=== PATIENT | female | born 1955 | race Asian ===

== ENCOUNTER 2024-07-07 22:22 | Inpatient (IN) | payer OTHER, SELFPAY ==
[2024-07-07 15:45] VITALS: BP 171/107
[2024-07-07 16:43] LABS: % Eosinophils 1.3 % (0-6); % Immature Granulocytes 0.3 % (0-0.5); % Lymphocytes 14.3 % (20.5-51.1); % Monocytes 7.8 % (1.7-9.3); % Neutrophils 75.3 % (42.2-75.2); Absolute Eosinophils 0.1 10^3/uL (0-0.7); Absolute Lymphocytes 0.6 10^3/uL (1.2-3.4); Absolute Monocytes 0.3 10^3/uL (0.1-0.6); Absolute Neutrophils 2.9 10^3/uL (1.4-6.5); Hematocrit 33.4 % (37.0-47.0); Hemoglobin 11.6 g/dL (12.0-16.0); Mean Corp Hgb Conc. 34.7 g/dL (33.0-37.0); Mean Corpuscular Hgb 29.1 pg (27.0-31.0); Mean Corpuscular Volume 83.9 fL (81.0-99.0); Nucleated Red Blood Cells % 0 %; Platelet Count 6 10^3/uL (130-400); Red Blood Cell Count 3.98 10^6/uL (4.20-5.40); Red Cell Dist. Width 12.2 % (11.5-14.5); White Blood Cell Count 3.8 10^3/uL (4.8-10.8)
[2024-07-07 16:47] LABS: INR 1.07; PT 13.7 Sec (11.4-14.6)
[2024-07-07 16:48] LABS: APTT 33.6 Sec (23.4-35.0)
[2024-07-07 16:49] LABS: ALT (SGPT) 21 U/L (0-35); AST (SGOT) 35 U/L (14-36); Albumin 4.9 g/dl (3.5-5.0); Alkaline Phosphatase 59 U/L (38-126); Blood Urea Nitrogen 13 mg/dl (7-17); Calcium 9.8 mg/dl (8.4-10.2); Carbon Dioxide 28 mmol/L (22-30); Chloride 106 mmol/L (98-107); Glucose 111 mg/dl (70-99); Potassium 4.6 mmol/L (3.5-5.1); Sodium 144 mmol/L (135-145); Total Bilirubin 0.2 mg/dl (0.2-1.3); Total Protein 7.8 g/dl (6.3-8.2); eGFR > 60.00
[2024-07-07 16:59] VITALS: BMI 24.2
--- NOTE | 2024-07-07 18:36 | ED.GENMED ---
Addendum entered and electronically signed by Jason Ballard DO 07/07/24 21:46:
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 Not an acute finding.
Original Note:
History of Present Illness
General
Chief Complaint: Abnormal Lab Value
Source: patient
Time Seen by Provider: 07/07/24 17:33
History of Present Illness
History of Present Illness:
68-year-old female presents to the emergency room complaining of having an abnormal blood test performed by her primary care doctor. Patient states she has been having easy bruising prompting her to go to her primary care doctor. Primary care
doctor performed some labs and called her telling her her blood count was low and she needed to go to the emergency room. She does not the exact number. Patient denies headache. She denies any bleeding from her gums, nosebleed or rectal bleeding.
Patient has not had any recent illnesses. She has not started any new medications. She does not drink alcohol.
Phy Exam
Physical Exam
Physical Exam:
General: Awake, Alert, Oriented X3. No acute distress.
Vitals: unremarkable
Head: Atraumatic
Eyes: Pupils equal, EOMI
Throat: Airway intact, no exudates
Neck: Trachea midline
Lungs: Clear and equal b/l
Heart: Regular rate, no murmurs
Abd: Soft, Nontender, No pulsatile mass, I do not appreciate any splenomegaly
Neuro: Nonfocal
Skin: Warm, dry, no rash
Extremities: pulses equal b/l, no edema
Course
Orders/Labs/Results
Orders:
Orders
07/07/24 15:54
EKG [Electrocardiogram (*1)] Urgent
Reason for Study: Fatigue / Weakness
07/07/24 15:55
EKG- Treatment ONCE
07/07/24 16:25
Type+Screen Urgent
Complete Blood Count/With Diff Urgent
Comprehensive Metabolic Panel Urgent
PTT Urgent
Prothrombin Time Urgent
07/07/24 19:18
Blood Bank Products [* Blood Bank Products] Urgent
Blood Bank Products: *Plt Single Donor Leuko
Quantity: 1
Transfuse Today: Yes
Reason: Thrombocytopenia
07/07/24 19:50
ABO2 Urgent
BBK Wristband Number:
Associate notified that ABO2 has been ordered: [id number]
Date: 07/07/24
Time: 16:40
Environmental Studies Department Chair ID: [id number]
07/07/24 21:00
Dexamethasone Sod Phosphate [Decadron] 40 mg 0.9% Sodium Chloride 50 ml [Nss] 50 ml IV ONCE
07/07/24 21:07
Admit/Transfer Patient As Directed
Co-Sign Provider:
Level of Care: Inpatient admission
Assign to:: Medical/Surgical
Physician / Group: Hospitalist
Diagnosis: Low platelets
Reason for Hospitalization: Low platelets
Expected length of stay greater than two midnights?: Yes
ELOS- Estimated Length of Stay in days: 2
I certify the patient meets the requirements for IP care: Yes
07/07/24 21:08
PRN Pain Medication Management As Directed
May give lesser potent ordered pain med per pt: Yes
preference::
Protocol:: Medication orders for pain may be administered in a
manner that supports deferring to patient preference
when the pt is:
- Requesting an ordered lesser potent pain medication.
Least to most potent pain medications are defined
as: acetaminophen < NSAID < tramadol < opioids
(morphine, oxycodone, hydromorphone).
- Requesting a lesser dose of the same medication IF
ORDERED.
- Requesting a less intrusive route of administration
if both routes are prescribed by the provider (PO <
IV).
07/07/24 21:09
Code Status As Directed
Resuscitation Status: Full Code
Abnormal Lab Results
07/07/24
16:25
WBC 3.8 L 10^3/uL
(4.8-10.8)
RBC 3.98 L 10^6/uL
(4.20-5.40)
Hgb 11.6 L g/dL
(12.0-16.0)
Hct 33.4 L %
(37.0-47.0)
Plt Count 6 L* 10^3/uL
(130-400)
Absolute Lymphs (auto) 0.6 L 10^3/uL
(1.2-3.4)
Neutrophils % 75.3 H %
(42.2-75.2)
Lymphocytes % 14.3 L %
(20.5-51.1)
Glucose 111 H mg/dl
(70-99)
07/07/24 16:25
07/07/24 16:25
Vital Signs
Initial and Last Documented VS:
Initial Vital Signs
Temp Pulse Resp BP Pulse Ox
98 F 93 16 171/107 99
07/07/24 15:45 07/07/24 15:45 07/07/24 15:45 07/07/24 15:45 07/07/24 15:45
Last Documented Vital Signs
Temp Pulse Resp BP Pulse Ox
98.4 F 70 18 163/82 100
07/07/24 21:30 07/07/24 21:30 07/07/24 21:30 07/07/24 21:30 07/07/24 21:30
MDM/Problems Addressed
Differential Diagnosis Includes:
Myelodysplastic disease, ITP, TTP
MDM/Problems Addressed:
Patient presents with very low platelet count of 5000. She does have some easy bruising. No signs of more significant bleeding. Discussed patient's presentation with Dr. Marroquin who is on-call for hematology. Patient was actually seen in their
office couple days ago. Notes from the office suggest the patient has some history of low platelet count and she may have been treated with steroids in the past. He recommends we transfuse platelets and treat the patient with 40 mg of Decadron. I
did clarify the dose. Patient require hospitalization for close monitoring of bleeding, response to treatment.
*Pulse Oximetry
Patient hypoxic: no
*Critical Care Note
Total Time (30-74mins, 75-104mins- exclusive of procedures): Not Applicable
Data Reviewed
Review of Other/Old Records Reveals: Labs
Patient Management
Social determinants of health affecting care: Strong social support
Discussion with other providers: Hospitalist
ED Attending Note
-
Portions of this chart may have been created with voice recognition software.� Occasional wrong word or��sound alike� substitutions may have occurred due to the inherent limitations of voice recognition software.
Discharge Plan
Departure
Patient Disposition: Admit
Date of Disposition: 07/07/24
Time of Disposition: 19:48
Admit to: Med/Surg
Presentation/result/management discussed w/ accepting MD/DO: Hospitalist
Patient with high blood pressure during this ER visit?: No
Condition: Fair
Discharge Problem:
Thrombocytopenia
Prescriptions:
No Action
Vitamin C 2,000 mg Tablet Extended Release
2,000 mg PO DAILY
zinc 10 mg Tablet
10 mg PO DAILY
cholecalciferol (vitamin D3) [Vitamin D3] 25 mcg (1,000 unit) Tablet
25 mcg PO DAILY
Referrals:
Aram Razo MD [Family Provider] -
Interventions
Interventions:
*Risk Screen - Suicide Last Done: 07/07/24 15:45
*General Assessment Last Done: 07/07/24 16:59
*Neglect/Abuse Screening Last Done: 07/07/24 15:45
ED- Fall Risk Assessment Last Done: 07/07/24 20:01
*ED COVID-19 Vaccine History Last Done: 07/07/24 16:59
Discharge Date and Time
Print Language: THAI
[2024-07-07 20:00] VITALS: BP 176/87
[2024-07-07] MEDS: DECADRON 60 MG IV (20:41)
--- NOTE | 2024-07-07 20:51 | HPS.HSE ---
Family Physician
-
Family Physician: Aram Razo
Chief Complaint
-
low platelets
History of Present Illness
68-year-old woman comes in because of an abnormal blood test performed by her primary care doctor. She had been having easy bruising, prompting her to go to her primary care doctor. The primary care doctor performed some labs and called her
telling her her blood count was low and she needed to go to the emergency room. She does not which exact number was low. Patient denies headache. She denies any bleeding from her gums, nosebleed or rectal bleeding. Patient has not had any recent
illnesses. She has not started any new medications. She does not drink alcohol. In ED she was found to have a platelet count of 6. At the time of my interview, she said she felt well and had no complaints.
Medical History
Past Medical History
Past Medical History: Reports Other
Additional Past Medical History:
Possible ITP
Low vitamin D
Past Surgical History: Reports None
Social History
Tobacco: Non-smoker
Alcohol: None
Drug: None
Family History
Family History: Not pertinent
Allergies / Home Medications
Allergies reflects when Allergies were last updated in [facility].
Home Medications with original date entered in [facility]
Allergy/Medication List:
Allergies
Allergy/AdvReac Type Severity Reaction Status Date / Time
shellfish derived Allergy Rash Verified 07/07/24 15:53
Home Medications
ascorbic acid (vitamin C) 2,000 mg tablet,extended release 2,000 mg PO DAILY 07/07/24
cholecalciferol (vitamin D3) 25 mcg (1,000 unit) tablet (Vitamin D3) 25 mcg PO DAILY 07/07/24
zinc 10 mg tablet 10 mg PO DAILY 07/07/24
Review of Systems
-
History Source: Patient
A 12 point ROS was completed and negative except as noted: Yes
Physical Exam
Vital Signs
Vital Signs
Temp Pulse Resp BP Pulse Ox
98 F 80 16 176/87 99
07/07/24 15:45 07/07/24 20:00 07/07/24 20:00 07/07/24 20:00 07/07/24 20:00
Physical Exam
General: Well Developed, Well Nourished, No Apparent Distress and Comfortable
HEENT: NormoCephalic, Moist mucous membranes, Atraumatic, No Ptosis, Nose Appears Normal and Ears Appear Normal
Respiratory: Clear
Cardiac: S1/S2 and Regular Rhythm
GI: Soft, Non Tender and Non Distended
Musculoskeletal: No Clubbing, No Cyanosis and No Edema
Skin: Warm and Dry
Neuro: Awake, Alert and Oriented
Psych: Calm
Laboratory Results
-
07/07/24 16:25
07/07/24 16:25
Laboratory Results
PT 13.7 Sec (11.4-14.6) 07/07/24 16:25
INR 1.07 07/07/24 16:25
APTT 33.6 Sec (23.4-35.0) 07/07/24 16:25
Total Bilirubin 0.2 mg/dl (0.2-1.3) 07/07/24 16:25
AST 35 U/L (14-36) 07/07/24 16:25
ALT 21 U/L (0-35) 07/07/24 16:25
Alkaline Phosphatase 59 U/L (38-126) 07/07/24 16:25
Data Reviewed
-
Lab Data: Labs Reviewed by me
Impression/Plan
-
IMPRESSION:
68 woman with low platelets. Significant findings:
WBC 3.8
H/H 11.6/33.4
PLT 6
PLAN:
1. Low platelets, possible h/o ITP
IV decadron
Platelet transfusion in am
Recheck labs in am
If in good range, may consider transition to outpt followup
Full code
VCD for DVTP (avoid reparin products)
[2024-07-07 21:30] VITALS: BP 163/82
[2024-07-07 21:55] VITALS: BP 124/78
--- NOTE | 2024-07-07 22:00 | EDRN ---
patient resting comfortably, waiting on a bed at this time, call denton in reach
--- NOTE | 2024-07-08 01:35 | EDRN ---
Patient sleeping at this time, call denton in reach, will continue to monitor
[2024-07-08 02:18] VITALS: BP 178/107; BMI 23.3
[2024-07-08 02:40] VITALS: BP 170/88
[2024-07-08] MEDS: FLUSH (NSS) 2 FLUSH IV (02:41)
[2024-07-08] MEDS: DECADRON 4 MG IV ×2 (02:41→07:44)
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
[2024-07-08 04:50] VITALS: BP 158/86
[2024-07-08 07:01] LABS: Blood Urea Nitrogen 13 mg/dl (7-17); Calcium 9.4 mg/dl (8.4-10.2); Carbon Dioxide 24 mmol/L (22-30); Chloride 107 mmol/L (98-107); Estimated Creatinine Clearance 90 ml/min; Glucose 139 mg/dl (70-99); Potassium 3.6 mmol/L (3.5-5.1); Sodium 144 mmol/L (135-145); eGFR > 60.00
[2024-07-08 07:16] LABS: Hematocrit 35.2 % (37.0-47.0); Hemoglobin 12.4 g/dL (12.0-16.0); Mean Corp Hgb Conc. 35.2 g/dL (33.0-37.0); Mean Corpuscular Volume 82.4 fL (81.0-99.0); Platelet Count 8 10^3/uL (130-400); Red Blood Cell Count 4.27 10^6/uL (4.20-5.40); Red Cell Dist. Width 12.3 % (11.5-14.5)
[2024-07-08 08:22] VITALS: BP 156/56
--- NOTE | 2024-07-08 09:00 | W.PN.HOSP.TC ---
Today's Communication/Plan
-
see note
Assessment / Plan
Assessment / Plan
1. Thrombocytopenia
- new finding, no previous h/o
- Denies recent infection, no rash/joint pain h/o
- Plt 6 k on admission, WNC 3k, neurophil dominant, Hbg 12.4
- PT/INR/PTT wnl
- Manual diff ordered to check for atypical cells
- Check HepB/C/HIV/KEMAR/B12/folate level. Further testing per hematology
- Low concern for ongoing hemolysis with normal wbc
- Got 1 u plt per hematology recommendation
- Got IV decadron 40mg x1 in ER, ordering Prednisone 1mg/kg dose for now
2. Elevated BP
- no formal dx of HTN
- start norvasc 5mg/d
- PRN hydralazine for SBP > 160
DVT PPX - scd
Full code
Totat time spent : 52 mins
Anticipated Discharge: 24 - 48 hours
Subjective/Interval History
-
Date of Service: July 08, 2024
patient has diffuse ecchymosis of both upper and lower ext
no major bleeding diathesis
Objective Data
-
Labs:
Laboratory Results
07/08/24 07/08/24
06:20 08:47
WBC 3.0 L
Hgb 12.4
Hct 35.2 L
Plt Count 8 L* D
PT Cancelled
INR Cancelled
APTT Cancelled
Sodium 144
Potassium 3.6
Chloride 107
Carbon Dioxide 24
BUN 13
Creatinine 0.5 L
Glucose 139 H
Calcium 9.4
Vital Signs:
Vital Signs
Temp Pulse Resp BP Pulse Ox
97.8 F 69 16 156/56 96
07/08/24 08:22 07/08/24 08:22 07/08/24 08:22 07/08/24 08:22 07/08/24 08:22
I&O
07/07/24 07/08/24 07/09/24
06:59 06:59 06:59
Intake Total 360 / 360
Balance 360 / 360
Review of Systems
-
Respiratory: Reports No Symptoms
Cardiac: Reports No Symptoms
Abdomen/GI: Reports No Symptoms
Physical Exam
-
General: No Apparent Distress and Comfortable
HEENT: Negative Oxygen
Respiratory: Clear to Auscultation
Cardiac: Regular Rhythm and S1/S2; Negative Murmur or Rub
GI: Soft, Nontender, Nondistended and Normal Bowel Sounds
Musculoskeletal: No Edema
Skin: Other (Diffuse echymosis)
Neuro: Awake, Alert, Oriented, No Motor Deficits and Nonfocal/Grossly Intact
Psych: Calm
[2024-07-08] MEDS: DELTASONE 70 MG PO (10:01)
[2024-07-08] MEDS: PROTONIX 40 MG PO (10:02)
[2024-07-08] MEDS: NORVASC 5 MG PO (10:02)
[2024-07-08 10:06] LABS: Absolute Neutrophils -Man Diff 2.4 10^3/uL (1.4-6.5); Band Neutrophils 8 % (0-3); Segmented Neutrophils 75 % (42-75)
[2024-07-08 10:07] LABS: Lymphocytes 17 % (20-51)
[2024-07-08 10:08] LABS: Platelets Checked YES
[2024-07-08 10:11] LABS: Normal RBC Morphology No; Ovalocytes FEW
[2024-07-08 10:12] LABS: Total Cells Counted 100
[2024-07-08 11:04] LABS: HIV Combo Negative (Negative)
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
[2024-07-08 12:40] LABS: Folate > 20.0 ng/ml (2.76-20); Vitamin B12 922 pg/ml (239-931)
[2024-07-08 15:56] VITALS: BP 142/83
[2024-07-08 23:00] VITALS: BP 128/78
[2024-07-09 07:13] VITALS: BP 141/83
[2024-07-09 07:30] LABS: Blood Urea Nitrogen 21 mg/dl (7-17); Calcium 9.2 mg/dl (8.4-10.2); Carbon Dioxide 26 mmol/L (22-30); Chloride 107 mmol/L (98-107); Estimated Creatinine Clearance 90 ml/min; Glucose 111 mg/dl (70-99); Potassium 3.7 mmol/L (3.5-5.1); Sodium 143 mmol/L (135-145); eGFR > 60.00
--- NOTE | 2024-07-09 07:33 | W.PN.HOSP.TC ---
Addendum entered and electronically signed by Ham Lael MD 07/09/24 14:43:
thrombocytopenia, unclear etiology, lkely/suspected ITP though/ unlikely hus as no renal dysfunciton, maha, high ldh/bili/low hapto. unlikely ttp as no confusion, maha, high ldh/bili/low hapto.
-continue steroids for now
-s/p 1u plts
-plt 47 now, not sure if this steroids or transfusion
-therefore will repeat in the AM, if continues to rise then related to steroids and can dc home on po steroids
-if going down tghen related to transfusion and will need to discuss with hem.
Original Note:
Today's Communication/Plan
-
Patient's platelets have increased up to 47,000 following steroids and platelet transfusion. Oncology recommends that we monitor the patient overnight to ensure that they maintain a reasonable level of platelets. Oncology recommends continuing
steroids and his changed steroids over from prednisone to a pulsed therapy with dexamethasone. Oncology states that if the patient is discharged tomorrow she will only need 1 more dose of dexamethasone 40 mg on Tuesday which could be administered
orally.
Assessment / Plan
Assessment / Plan
HPI: Patient is a 68-year-old woman who came into the emergency department due to an abnormal blood test performed by her primary care doctor. Unfortunately, she has been having easy bruising which prompted her to go to the primary care doctor.
Her primary care doctor performed some labs in the office and called her telling her that one of the values in her blood count was low and that she needed to go to the emergency room. She did not remember which exact number was low. The patient
denied any headache in the emergency department. She denied any bleeding from her gums, nose bleeding, or rectal bleeding. She has not had any recent illnesses. She has not started any new medications. She does not drink alcohol either. In the
emergency department she was found to have a platelet count of 6. During interview in the emergency department the patient felt well and had no complaints at that time. In the emergency department she was given 1 unit of platelets. She was
admitted to [facility] for thrombocytopenia.
Assessment/Plan:
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
Platelets were 6000 on admission, WBCs were low at 3.8, neurophil dominant, hemoglobin was 11.6 on 07/07/24 -platelets are 47 following platelet transfusion, white blood cells at 5.7, and hemoglobin at 11.4 on 07/09/2024
PT/INR/PTT wnl
Manual diff ordered to check for atypical cells -neutrophil predominant
Checked HepB/C/HIV/KEMAR/B12/folate level. Further testing per hematology
Low concern for ongoing hemolysis with normal wbc
Got 1 u plt per hematology recommendation
Patient currently on dexamethasone 40 mg IV every 24 hours
-Elevated BP:
No prior diagnosis of hypertension�possibly essential hypertension
Norvasc 5mg/d started
PRN hydralazine for SBP > 160
ulcer prophylaxis: Pantoprazole sodium 40 mg
DVT PPX -sequential compression devices
FULL CODE STATUS
Anticipated Discharge: 24 - 48 hours
Subjective/Interval History
-
Date of Service: July 09, 2024
Met with patient at the bedside. Overall, she is doing well and offers no complaints at the present time. She stated that she has no abnormal symptoms other than the abnormal bruising she was getting in the past that has not changed since her
arrival. She has no new bruises since she has come to the hospital. She has not had any bloody stools or vomiting. She has not noticed any abnormal bruising or bleeding anywhere.
Objective Data
-
Labs:
Laboratory Results
07/09/24
06:42
WBC Pending
Hgb Pending
Hct Pending
Plt Count Pending
Sodium 143
Potassium 3.7
Chloride 107
Carbon Dioxide 26
BUN 21 H
Creatinine 0.6
Glucose 111 H
Calcium 9.2
Vital Signs:
Vital Signs
Temp Pulse Resp BP Pulse Ox
98.1 F 77 14 128/78 94
07/08/24 23:00 07/08/24 23:00 07/08/24 23:00 07/08/24 23:00 07/08/24 23:00
I&O
07/08/24 07/09/24 07/10/24
06:59 06:59 06:59
Intake Total 360 / 360 780 / 780
Balance 360 / 360 780 / 780
[2024-07-09 07:47] LABS: Hematocrit 32.1 % (37.0-47.0); Hemoglobin 11.4 g/dL (12.0-16.0); Mean Corp Hgb Conc. 35.5 g/dL (33.0-37.0); Mean Corpuscular Hgb 29.5 pg (27.0-31.0); Mean Corpuscular Volume 83.2 fL (81.0-99.0); Red Blood Cell Count 3.86 10^6/uL (4.20-5.40); Red Cell Dist. Width 12.4 % (11.5-14.5); White Blood Cell Count 5.7 10^3/uL (4.8-10.8)
[2024-07-09 07:50] LABS: Mean Platelet Volume 14.3 fL (7.4-10.4)
[2024-07-09 07:52] LABS: Platelet Count 47 10^3/uL (130-400)
[2024-07-09] MEDS: DELTASONE 70 MG PO (08:30)
[2024-07-09] MEDS: PROTONIX 40 MG PO (08:30)
[2024-07-09] MEDS: NORVASC 5 MG PO (08:31)
--- NOTE | 2024-07-09 11:39 | W.PN.ONC ---
Today's Communication / Plan
-
Platelets are up to 47,000. Unclear if this is due to the steroids or the platelet transfusion. Would prefer to watch overnight to ensure that they will maintain a reasonable level, which I would anticipate they will. Continue steroids. I have
changed the prednisone to pulse therapy with dexamethasone. If discharged tomorrow, she would need only 1 more dose of 40 mg on Tuesday, which could be administered orally.
Impression
Impression
severe thrombocytopenia - possible ITP
Plan
Plan
1. Thrombocytopenia - severe- The patient's thrombocytopenia appears to be chronic in nature. Continue pulse dexamethasone 40mg daily and monitor CBC. Check anti-platelet antibody.
Will continue to follow with you.
Subjective/Objective
Subjective/Objective
She is feeling reasonably well. She reports no bleeding. Examination is unchanged.
Vital Signs:
Vital Signs
Temp Pulse Resp BP Pulse Ox
97.6 F 60 12 141/83 98
07/09/24 07:13 07/09/24 07:13 07/09/24 07:13 07/09/24 07:13 07/09/24 07:13
Lab Results:
Laboratory Data
WBC 5.7 10^3/uL (4.8-10.8) 07/09/24 06:42
Hgb 11.4 g/dL (12.0-16.0) L 07/09/24 06:42
Plt Count 47 10^3/uL (130-400) L D 07/09/24 06:42
PT Cancelled 07/08/24 08:47
INR Cancelled 07/08/24 08:47
APTT Cancelled 07/08/24 08:47
eGFR > 60.00 07/09/24 06:42
[2024-07-09] MEDS: DECADRON 60 MG IV (13:45)
[2024-07-09 15:36] VITALS: BP 124/69
--- NOTE | 2024-07-09 15:46 | CM ---
Addendum entered by PHOENIX Zamorano 07/09/24 16:14:
Patient's S.S # for UR [id number]
Original Note:
Reviewed chart, met with patient to obtain information for assessment. Patient stated that she lives in a single home with 7 steps to enter. She described herself as independent with her ADLs, personal care, dressing and bathing. She does not use a
cane, walker or w/c. She denied DME. She stated that family assists with quilt sewer, cooking, cleaning and laundry. Family transports patient to her appointments and helps with the shopping.
Patient has not had VN services.
She has not had to go to a SNF.
Patient has a prescription plan and uses, [facility] for all of her medications.
Patient's PCP is, Aram Razo MD.
Patient stated that she should be able to return home when medically cleared for discharge and does not plan and any needs.
Plan: Case management will continue to follow and assist with discharge planning. Home when stable.
[2024-07-09 19:04] LABS: Hepatitis B Surface Antigen Negative (Negative)
[2024-07-09 19:22] LABS: Hepatitis B Core Ab, Total Reactive (Negative); Hepatitis B Surface Antibody Negative; Hepatitis C Antibody Negative (Negative)
[2024-07-09 23:20] VITALS: BP 126/73
--- NOTE | 2024-07-10 07:26 | W.PN.HOSP.TC ---
Addendum entered and electronically signed by Ham Leal MD 07/11/24 11:46:
take 1 more day of po prednisone. outpatient heme follow up
dc ready to home
total time spent on DC 32mins
-included chart review
-medication review
-follow up
-ddx diagnosis
-post hospital care/needs
Original Note:
Today's Communication/Plan
-
Patient appears to be at her baseline and her platelets are stable and continue to trend upwards. Hematology has evaluated the patient and by their assessment believes the patient is appropriate for discharge with a completion of 40 mg of
dexamethasone.
Assessment / Plan
Assessment / Plan
HPI: Patient is a 68-year-old woman who came into the emergency department due to an abnormal blood test performed by her primary care doctor. Unfortunately, she has been having easy bruising which prompted her to go to the primary care doctor.
Her primary care doctor performed some labs in the office and called her telling her that one of the values in her blood count was low and that she needed to go to the emergency room. She did not remember which exact number was low. The patient
denied any headache in the emergency department. She denied any bleeding from her gums, nose bleeding, or rectal bleeding. She has not had any recent illnesses. She has not started any new medications. She does not drink alcohol either. In the
emergency department she was found to have a platelet count of 6. During interview in the emergency department the patient felt well and had no complaints at that time. In the emergency department she was given 1 unit of platelets. She was
admitted to [facility] for thrombocytopenia.
Assessment/Plan:
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
Platelets were 6000 on admission, WBCs were low at 3.8, neurophil dominant, hemoglobin was 11.6 on 07/07/24 -platelets are 47 following platelet transfusion, white blood cells at 5.7, and hemoglobin at 11.4 on 07/09/2024. Platelets are 77 on
07/10/2024.
PT/INR/PTT wnl
Manual diff ordered to check for atypical cells -neutrophil predominant
Checked HepB/C/HIV/KEMAR/B12/folate level. Further testing per hematology
Low concern for ongoing hemolysis with normal wbc
Got 1 unit of platelets per hematology recommendation
Patient will be discharged on 1 day dose of 40 mg dexamethasone
-Elevated BP:
No prior diagnosis of hypertension�possibly essential hypertension
Norvasc 5mg/d started
PRN hydralazine for SBP > 160
ulcer prophylaxis: Pantoprazole sodium 40 mg
DVT PPX -sequential compression devices
FULL CODE STATUS
Anticipated Discharge: Today
Subjective/Interval History
-
Date of Service: July 10, 2024
Met with patient at the bedside. The patient appears to be at her baseline and offers no complaints at the present time. She hopes to go home if possible.
Objective Data
-
Labs:
Labs
07/10/24 07:18
07/10/24 07:18
Vital Signs:
Vital Signs
Temp Pulse Resp BP Pulse Ox
97.8 F 65 16 126/73 96
07/09/24 23:20 07/09/24 23:20 07/09/24 23:20 07/09/24 23:20 07/09/24 23:20
I&O
07/09/24 07/10/24 07/11/24
06:59 06:59 06:59
Intake Total 780 / 780 770 / 770
Balance 780 / 780 770 / 770
Review of Systems
-
History Source: Patient
All other systems: Reviewed and negative
Constitutional: Reports No Symptoms
EENT: Reports No Symptoms Reported
Respiratory: Reports No Symptoms
Cardiac: Reports No Symptoms
Abdomen/GI: Reports No Symptoms
Breast: Reports No Symptoms
Genitourinary: Reports No Symptoms
Musculoskeletal: Reports No Symptoms
Skin: Reports No Symptoms
Neuro: Reports No Symptoms
Endocrine: Reports No Symptoms
Physical Exam
-
General: Well Developed, Well Nourished and No Apparent Distress
HEENT: Normocephalic, Atraumatic and Moist Mucous Membranes
Respiratory: Clear to Auscultation
Cardiac: Regular Rhythm and S1/S2
Breast: Deferred by me
GI: Soft, Nontender, Nondistended and Normal Bowel Sounds
Musculoskeletal: No Clubbing, No Cyanosis and No Edema
Skin: Warm and Dry
Neuro: Awake, Alert, Oriented and AO x 3
Psych: Calm
[2024-07-10 07:30] VITALS: BP 155/85
[2024-07-10 08:09] LABS: Hematocrit 33.3 % (37.0-47.0); Hemoglobin 11.6 g/dL (12.0-16.0); Mean Corp Hgb Conc. 34.8 g/dL (33.0-37.0); Mean Corpuscular Hgb 30.4 pg (27.0-31.0); Mean Corpuscular Volume 87.2 fL (81.0-99.0); Mean Platelet Volume 13.3 fL (7.4-10.4); Platelet Count 77 10^3/uL (130-400); Red Blood Cell Count 3.82 10^6/uL (4.20-5.40); Red Cell Dist. Width 12.5 % (11.5-14.5); White Blood Cell Count 5.2 10^3/uL (4.8-10.8)
[2024-07-10 08:36] LABS: Blood Urea Nitrogen 22 mg/dl (7-17); Calcium 9.2 mg/dl (8.4-10.2); Carbon Dioxide 25 mmol/L (22-30); Chloride 106 mmol/L (98-107); Estimated Creatinine Clearance 90 ml/min; Glucose 116 mg/dl (70-99); Sodium 143 mmol/L (135-145); eGFR > 60.00
--- NOTE | 2024-07-10 08:56 | W.PN.ONC2 ---
Today's Communication / Plan
-
Dexamethasone 40mg x 4 doses complete 07/11, ok to transition to oral for discharge, PPI for GI PPX while on steroids
Weekly CBC upon discharge arranged through HPO office
APLS panel and antiplatelet ab pending
Had Dr. Jerry follow up 07/25
Impression
Impression
severe thrombocytopenia - possible ITP
Plan
Plan
1. Thrombocytopenia - severe- The patient's thrombocytopenia appears to be chronic in nature. Continue pulse dexamethasone 40mg daily and monitor CBC.
Subjective/Objective
Chief Complaint
interpreter deaf ID [id number]
platelets improved to 77,000
Subjective
denies bleeding
Vital Signs:
Vital Signs
Temp Pulse Resp BP Pulse Ox
97.7 F 55 16 155/85 96
07/10/24 07:30 07/10/24 07:30 07/10/24 07:30 07/10/24 07:30 07/10/24 07:30
Lab Results:
Laboratory Data
WBC 5.2 10^3/uL (4.8-10.8) 07/10/24 07:18
Hgb 11.6 g/dL (12.0-16.0) L 07/10/24 07:18
Plt Count 77 10^3/uL (130-400) L D 07/10/24 07:18
PT Cancelled 07/08/24 08:47
INR Cancelled 07/08/24 08:47
APTT Cancelled 07/08/24 08:47
eGFR > 60.00 07/10/24 07:18
Physical Exam
General: Well Developed, Well Nourished and No Apparent Distress
HEENT: Negative Jaundice
Cardiology: Normal Sinus Rhythm
Pulmonary: Clear
GI: Soft and Normal Bowel Sounds
Extremities: No C/C/E
Neurology: Non Focal
Review of Systems
Review of Systems
ROS notable for subjective, otherwise negative
[2024-07-10] MEDS: PROTONIX 40 MG PO (10:32)
[2024-07-10] MEDS: NORVASC 5 MG PO (10:32)
[2024-07-10 11:30] VITALS: BP 132/68
[2024-07-10] MEDS: DECADRON 60 MG IV (11:38)
--- NOTE | 2024-07-10 12:22 | CM ---
Reviewed chart, patient medically cleared for discharge. Patient's son signed IMM. Will transport home.
Plan: Case management will continue to follow and assist with discharge planning. Home with family.
--- NOTE | 2024-07-10 12:35 | W.DCSUMMARY ---
Documented by User: Tripp Judge MD, Resident 07/10/24 12:46
Discharge Summary
Discharge Data
Date of Admission: 07/07/24
Date of Discharge: 07/10/24
-
Pending Results: Yes
Additional Pending Results:
Antiphospholipid panel and antiplatelet antibody panel pending -follow-up results with Dr. Jerry in the outpatient setting
Hospital Course
Patient is a 68-year-old woman who came into the emergency department due to an abnormal blood test performed by her primary care doctor. Unfortunately, she has been having easy bruising which prompted her to go to the primary care doctor. Her
primary care doctor performed some labs in the office and called her telling her that one of the values in her blood count was low and that she needed to go to the emergency room. She did not remember which exact number was low. The patient denied
any headache in the emergency department. She denied any bleeding from her gums, nose bleeding, or rectal bleeding. She has not had any recent illnesses. She has not started any new medications. She does not drink alcohol either. In the
emergency department she was found to have a platelet count of 6. During interview in the emergency department the patient felt well and had no complaints at that time. In the emergency department she was given 1 unit of platelets. She was
admitted to [facility] for thrombocytopenia.
Patient was started on dexamethasone 40 mg IV every 24 hours. Following her platelet transfusion she was at a level of 47,000 and her white blood cell count and hemoglobin values improved to normal limits. Patient was tested for hepatitis B and C,
HIV, KEMAR, B12, and folate levels were checked. Patient was positive for hepatitis B core antigen which suggests a past infection. Remainder of liver enzymes with were within normal limits. There was low concern for ongoing hemolysis considering
her white blood cell counts were normal. The patient did well after receiving IV's dose steroids and her platelets continue to improve. Norvasc 5 mg was started for hypertension. The patient was never diagnosed with hypertension which suggest
that this patient suffers from essential hypertension. Hematology oncology met with the patient and assessed her and believe that she is ready for discharge with 4 days of 40 mg dexamethasone steroid. The patient has been scheduled for a follow-up
with Dr. Jerry on 07/25/2024. An antiphospholipid panel and antiplatelet antibody panel remains pending and the patient should follow-up with these lab values in the outpatient setting.
The patient has reached maximal benefit from this hospital admission and is appropriate for discharge at the present time. There are no barriers that impede this patient from being discharged at the present time. The patient has a follow-up
scheduled with Dr. Jerry in regards to her thrombocytopenia. The patient is appropriate for follow-up with her primary care provider in the outpatient setting 1 to 2 weeks following discharge.
Discharge Plan
-
Patient Disposition: Home (Routine Discharge)
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
Condition: Good
Diet: No restrictions
Activity: No restrictions
Driving Restrictions: As prior to admission
Referrals:
Aram Razo MD [Family Provider] - in one to two weeks
Additional Discharge Medication Instructions: Patient should take 40 mg dexamethasone for 4 days following her discharge from the hospital. Patient was started on 5 mg of amlodipine for hypertension.
Prescriptions:
New
dexamethasone 20 mg tablet
40 mg PO DAILY 1 Days Qty: 2 0RF
Rx Instructions:
Take 40mg (2 tabs) for one day after discharge
dexamethasone 20 mg tablet
40 mg PO DAILY 3 Days Qty: 6 0RF
Rx Instructions:
Take 40mg Dexamethasone for 4 days following discharge
amlodipine 5 mg tablet
5 mg PO DAILY 30 Days Qty: 30 0RF
Continued
ascorbic acid (vitamin C) 2,000 mg Tablet Extended Release
2,000 mg PO DAILY
zinc 10 mg Tablet
10 mg PO DAILY
cholecalciferol (vitamin D3) [Vitamin D3] 25 mcg (1,000 unit) Tablet
25 mcg PO DAILY
Discharge Orders:
Discharge Patient (As Directed); Ordered 07/10/24
Ordered By: Ahmed Seedat
Discharge Date and Time
Discharge Date/Time: 07/10/24 12:33
Print Language: SUDANESE

Documented by User: Ham Leal MD 07/11/24 11:42
Discharge Summary
Discharge Data
Date of Admission: 07/07/24
Date of Discharge: 07/11/24
Discharge Plan
-
Patient Disposition: Home (Routine Discharge)
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
Condition: Good
Diet: No restrictions
Activity: No restrictions
Driving Restrictions: As prior to admission
Referrals:
Aram Razo MD [Family Provider] - in one to two weeks
Additional Discharge Medication Instructions: Patient should take 40 mg dexamethasone for 4 days following her discharge from the hospital. Patient was started on 5 mg of amlodipine for hypertension.
Prescriptions:
New
dexamethasone 20 mg tablet
40 mg PO DAILY 1 Days Qty: 2 0RF
Rx Instructions:
Take 40mg (2 tabs) for one day after discharge
dexamethasone 20 mg tablet
40 mg PO DAILY 3 Days Qty: 6 0RF
Rx Instructions:
Take 40mg Dexamethasone for 4 days following discharge
amlodipine 5 mg tablet
5 mg PO DAILY 30 Days Qty: 30 0RF
Continued
ascorbic acid (vitamin C) 2,000 mg Tablet Extended Release
2,000 mg PO DAILY
zinc 10 mg Tablet
10 mg PO DAILY
cholecalciferol (vitamin D3) [Vitamin D3] 25 mcg (1,000 unit) Tablet
25 mcg PO DAILY
Discharge Orders:
Discharge Patient (As Directed); Ordered 07/10/24
Ordered By: Tripp Judge
Discharge Date and Time
Discharge Date/Time: 07/10/24 12:33
Print Language: SUDANESE
[2024-07-10 17:42] LABS: Platelet Antibody, Direct IgG Negative (Negative); Platelet Antibody, Direct IgM Negative (Negative)
== END 2024-07-10 12:33 | disposition home or self-care (01) | DRG 813 ==
LOC: 3 WEST ACU 22:22
PROVIDERS: Emergency Medicine; Hospitalist; ADMITTING PHYSICIAN Internal Medicine; ATTENDING PHYSICIAN Hospitalist; CONSULT PHYSICIAN Internal Medicine Hematology & Oncology; EMERGENCY PHYSICIAN Emergency Medicine; FAMILY PHYSICIAN Internal Medicine
PROC: 30233R1 Transfusion of Nonautologous Platelets into Peripheral Vein, Percutaneous Approach (ICD-10-PCS; 2024-07-07)
DX: D69.3 Immune thrombocytopenic purpura (principal); D69.6 Thrombocytopenia, unspecified
CPT/HCPCS: 80048; 80053; 82607; 82746; 85025; 85027; 85610; 85730; 86023; 86038; 86704; 86706; 86803; 86850; 86900; 86901; 87340; 87389; 93005; 96374; 99284; P9073

== ENCOUNTER → 2025-02-12 16:08 | Outpatient (REF) | payer OTHER, SELFPAY ==
[2025-02-12 10:05] LABS: % Basophils 1.4 % (0-2); % Eosinophils 3.5 % (0-6); % Lymphocytes 44.1 % (20.5-51.1); % Monocytes 11.5 % (1.7-9.3); % Neutrophils 39.5 % (42.2-75.2); Absolute Eosinophils 0.1 10^3/uL (0-0.7); Absolute Lymphocytes 1.3 10^3/uL (1.2-3.4); Absolute Monocytes 0.3 10^3/uL (0.1-0.6); Absolute Neutrophils 1.1 10^3/uL (1.4-6.5); Hematocrit 35.9 % (37.0-47.0); Hemoglobin 12.4 g/dL (12.0-16.0); Mean Corp Hgb Conc. 34.5 g/dL (33.0-37.0); Mean Corpuscular Volume 86.9 fL (81.0-99.0); Mean Platelet Volume 12.4 fL (7.4-10.4); Platelet Count 77 10^3/uL (130-400); Red Blood Cell Count 4.13 10^6/uL (4.20-5.40); White Blood Cell Count 2.9 10^3/uL (4.8-10.8)
== END ==
LOC: OIDL 16:08
PROVIDERS: ATTENDING PHYSICIAN Nurse Practitioner Primary Care
DX: D69.6 Thrombocytopenia, unspecified (principal)
CPT/HCPCS: 85025

== ENCOUNTER → 2025-02-19 09:45 | Outpatient (REF) | payer OTHER, SELFPAY ==
[2025-02-19 09:47] LABS: % Eosinophils 4.9 % (0-6); % Lymphocytes 37.5 % (20.5-51.1); % Monocytes 10.4 % (1.7-9.3); % Neutrophils 46.2 % (42.2-75.2); Absolute Eosinophils 0.1 10^3/uL (0-0.7); Absolute Lymphocytes 1.1 10^3/uL (1.2-3.4); Absolute Monocytes 0.3 10^3/uL (0.1-0.6); Absolute Neutrophils 1.3 10^3/uL (1.4-6.5); Hematocrit 33.5 % (37.0-47.0); Hemoglobin 11.6 g/dL (12.0-16.0); Mean Corp Hgb Conc. 34.6 g/dL (33.0-37.0); Mean Corpuscular Hgb 29.7 pg (27.0-31.0); Mean Corpuscular Volume 85.9 fL (81.0-99.0); Mean Platelet Volume 11.5 fL (7.4-10.4); Platelet Count 110 10^3/uL (130-400); Red Cell Dist. Width 12.1 % (11.5-14.5); White Blood Cell Count 2.9 10^3/uL (4.8-10.8)
== END ==
LOC: OIDL 09:45
PROVIDERS: ATTENDING PHYSICIAN Nurse Practitioner Primary Care
DX: D69.6 Thrombocytopenia, unspecified (principal)
CPT/HCPCS: 85025

== ENCOUNTER → 2025-02-26 09:20 | Outpatient (REF) | payer OTHER, SELFPAY ==
[2025-02-26 09:38] LABS: % Basophils 0.8 % (0-2); % Immature Granulocytes 0.3 % (0-0.5); % Lymphocytes 31.6 % (20.5-51.1); % Monocytes 8.8 % (1.7-9.3); % Neutrophils 54.5 % (42.2-75.2); Absolute Eosinophils 0.2 10^3/uL (0-0.7); Absolute Lymphocytes 1.2 10^3/uL (1.2-3.4); Absolute Monocytes 0.3 10^3/uL (0.1-0.6); Absolute Neutrophils 2.1 10^3/uL (1.4-6.5); Hematocrit 34.4 % (37.0-47.0); Hemoglobin 11.8 g/dL (12.0-16.0); Mean Corp Hgb Conc. 34.3 g/dL (33.0-37.0); Mean Corpuscular Hgb 29.5 pg (27.0-31.0); Mean Platelet Volume 10.7 fL (7.4-10.4); Platelet Count 128 10^3/uL (130-400); Red Cell Dist. Width 12.2 % (11.5-14.5); White Blood Cell Count 3.8 10^3/uL (4.8-10.8)
== END ==
LOC: OIDL 09:20
PROVIDERS: ATTENDING PHYSICIAN Internal Medicine Hematology & Oncology; FAMILY PHYSICIAN Internal Medicine
DX: D69.6 Thrombocytopenia, unspecified (principal)
CPT/HCPCS: 36415; 85025

== ENCOUNTER → 2025-03-05 09:07 | Outpatient (REF) | payer OTHER, SELFPAY ==
[2025-03-05 09:19] LABS: % Basophils 0.6 % (0-2); % Eosinophils 4.5 % (0-6); % Immature Granulocytes 0.3 % (0-0.5); % Monocytes 9.2 % (1.7-9.3); % Neutrophils 50.4 % (42.2-75.2); Absolute Eosinophils 0.2 10^3/uL (0-0.7); Absolute Lymphocytes 1.2 10^3/uL (1.2-3.4); Absolute Monocytes 0.3 10^3/uL (0.1-0.6); Absolute Neutrophils 1.7 10^3/uL (1.4-6.5); Hematocrit 35.7 % (37.0-47.0); Hemoglobin 12.2 g/dL (12.0-16.0); Mean Corp Hgb Conc. 34.2 g/dL (33.0-37.0); Mean Corpuscular Hgb 29.5 pg (27.0-31.0); Mean Corpuscular Volume 86.4 fL (81.0-99.0); Mean Platelet Volume 10.8 fL (7.4-10.4); Platelet Count 231 10^3/uL (130-400); Red Blood Cell Count 4.13 10^6/uL (4.20-5.40); Red Cell Dist. Width 12.3 % (11.5-14.5); White Blood Cell Count 3.4 10^3/uL (4.8-10.8)
== END ==
LOC: OIDL 09:07
PROVIDERS: ATTENDING PHYSICIAN Internal Medicine Hematology & Oncology; FAMILY PHYSICIAN Internal Medicine
DX: D69.6 Thrombocytopenia, unspecified (principal)
CPT/HCPCS: 36415; 85025

== ENCOUNTER → 2025-03-19 09:06 | Outpatient (REF) | payer OTHER, SELFPAY ==
[2025-03-19 09:17] LABS: % Basophils 0.9 % (0-2); % Eosinophils 4.5 % (0-6); % Lymphocytes 36.6 % (20.5-51.1); % Monocytes 9.7 % (1.7-9.3); % Neutrophils 48.3 % (42.2-75.2); Absolute Eosinophils 0.2 10^3/uL (0-0.7); Absolute Lymphocytes 1.3 10^3/uL (1.2-3.4); Absolute Monocytes 0.3 10^3/uL (0.1-0.6); Absolute Neutrophils 1.7 10^3/uL (1.4-6.5); Hemoglobin 11.9 g/dL (12.0-16.0); Mean Corpuscular Hgb 29.8 pg (27.0-31.0); Mean Corpuscular Volume 87.5 fL (81.0-99.0); Mean Platelet Volume 10.9 fL (7.4-10.4); Platelet Count 100 10^3/uL (130-400); Red Cell Dist. Width 12.2 % (11.5-14.5); White Blood Cell Count 3.5 10^3/uL (4.8-10.8)
== END ==
LOC: OIDL 09:06
PROVIDERS: ATTENDING PHYSICIAN Nurse Practitioner Primary Care
DX: D69.6 Thrombocytopenia, unspecified (principal); D69.3 Immune thrombocytopenic purpura
CPT/HCPCS: 36415; 85025

== ENCOUNTER → 2025-03-26 09:30 | Outpatient (REF) | payer OTHER, SELFPAY ==
[2025-03-26 10:10] LABS: % Basophils 0.5 % (0-2); % Eosinophils 2.7 % (0-6); % Lymphocytes 30.6 % (20.5-51.1); % Monocytes 9.2 % (1.7-9.3); Absolute Eosinophils 0.1 10^3/uL (0-0.7); Absolute Lymphocytes 1.1 10^3/uL (1.2-3.4); Absolute Monocytes 0.3 10^3/uL (0.1-0.6); Absolute Neutrophils 2.1 10^3/uL (1.4-6.5); Hematocrit 32.7 % (37.0-47.0); Hemoglobin 11.1 g/dL (12.0-16.0); Mean Corp Hgb Conc. 33.9 g/dL (33.0-37.0); Mean Corpuscular Hgb 29.3 pg (27.0-31.0); Mean Corpuscular Volume 86.3 fL (81.0-99.0); Mean Platelet Volume 12.6 fL (7.4-10.4); Platelet Count 62 10^3/uL (130-400); Red Blood Cell Count 3.79 10^6/uL (4.20-5.40); Red Cell Dist. Width 12.4 % (11.5-14.5); White Blood Cell Count 3.7 10^3/uL (4.8-10.8)
== END ==
LOC: OIDL 09:30
PROVIDERS: ATTENDING PHYSICIAN Internal Medicine Hematology & Oncology
DX: D69.6 Thrombocytopenia, unspecified (principal); D69.3 Immune thrombocytopenic purpura
CPT/HCPCS: 36415; 85025

== ENCOUNTER → 2025-04-02 10:42 | Outpatient (REF) | payer OTHER, SELFPAY ==
[2025-04-02 11:05] LABS: Hematocrit 33.6 % (37.0-47.0); Hemoglobin 11.5 g/dL (12.0-16.0); Mean Corp Hgb Conc. 34.2 g/dL (33.0-37.0); Mean Corpuscular Volume 87.5 fL (81.0-99.0); Platelet Count 186 10^3/uL (130-400); Red Cell Dist. Width 12.5 % (11.5-14.5)
== END ==
LOC: OIDL 10:42
PROVIDERS: ATTENDING PHYSICIAN Internal Medicine Hematology & Oncology
DX: D69.6 Thrombocytopenia, unspecified (principal); D69.3 Immune thrombocytopenic purpura
CPT/HCPCS: 36415; 85025

== ENCOUNTER → 2025-04-09 10:08 | Outpatient (REF) | payer OTHER, SELFPAY ==
[2025-04-09 10:32] LABS: Hematocrit 32.8 % (37.0-47.0); Hemoglobin 11.2 g/dL (12.0-16.0); Mean Corp Hgb Conc. 34.1 g/dL (33.0-37.0); Mean Corpuscular Volume 87.7 fL (81.0-99.0); Platelet Count 144 10^3/uL (130-400); Red Cell Dist. Width 12.6 % (11.5-14.5)
== END ==
LOC: OIDL 10:08
PROVIDERS: ATTENDING PHYSICIAN Internal Medicine Hematology & Oncology
DX: D69.6 Thrombocytopenia, unspecified (principal); D69.3 Immune thrombocytopenic purpura
CPT/HCPCS: 36415; 85025

== ENCOUNTER → 2025-04-16 10:24 | Outpatient (REF) | payer OTHER, SELFPAY ==
[2025-04-16 10:59] LABS: Hematocrit 34.3 % (37.0-47.0); Hemoglobin 11.5 g/dL (12.0-16.0); Mean Corp Hgb Conc. 33.5 g/dL (33.0-37.0); Mean Corpuscular Volume 87.3 fL (81.0-99.0); Platelet Count 172 10^3/uL (130-400); Red Cell Dist. Width 12.6 % (11.5-14.5)
== END ==
LOC: OIDL 10:24
PROVIDERS: ATTENDING PHYSICIAN Internal Medicine Hematology & Oncology
DX: D69.6 Thrombocytopenia, unspecified (principal); D69.3 Immune thrombocytopenic purpura
CPT/HCPCS: 36415; 85025

== ENCOUNTER → 2025-04-23 09:56 | Outpatient (REF) | payer OTHER, SELFPAY ==
[2025-04-23 10:07] LABS: Hematocrit 34.3 % (37.0-47.0); Hemoglobin 11.6 g/dL (12.0-16.0); Mean Corp Hgb Conc. 33.8 g/dL (33.0-37.0); Mean Corpuscular Volume 87.7 fL (81.0-99.0); Platelet Count 186 10^3/uL (130-400); Red Cell Dist. Width 12.6 % (11.5-14.5)
== END ==
LOC: OIDL 09:56
PROVIDERS: ATTENDING PHYSICIAN Internal Medicine Hematology & Oncology
DX: D69.6 Thrombocytopenia, unspecified (principal); D69.3 Immune thrombocytopenic purpura
CPT/HCPCS: 36415; 85025

== ENCOUNTER → 2025-04-30 08:39 | Outpatient (REF) | payer OTHER, SELFPAY ==
[2025-04-30 09:03] LABS: Hematocrit 34.9 % (37.0-47.0); Hemoglobin 11.6 g/dL (12.0-16.0); Mean Corp Hgb Conc. 33.2 g/dL (33.0-37.0); Mean Corpuscular Volume 88.8 fL (81.0-99.0); Red Cell Dist. Width 12.6 % (11.5-14.5)
[2025-04-30 09:04] LABS: Platelet Count 139 10^3/uL (130-400)
== END ==
LOC: OIDL 08:39
PROVIDERS: ATTENDING PHYSICIAN Internal Medicine Hematology & Oncology
DX: D69.6 Thrombocytopenia, unspecified (principal); D69.3 Immune thrombocytopenic purpura
CPT/HCPCS: 36415; 85025

== ENCOUNTER → 2025-05-07 08:43 | Outpatient (REF) | payer OTHER, SELFPAY ==
[2025-05-07 09:09] LABS: Hematocrit 35.8 % (37.0-47.0); Hemoglobin 11.8 g/dL (12.0-16.0); Mean Corp Hgb Conc. 33.0 g/dL (33.0-37.0); Mean Corpuscular Volume 88.8 fL (81.0-99.0); Platelet Count 89 10^3/uL (130-400); Red Cell Dist. Width 12.5 % (11.5-14.5)
== END ==
LOC: OIDL 08:43
PROVIDERS: ATTENDING PHYSICIAN Internal Medicine Hematology & Oncology; FAMILY PHYSICIAN Internal Medicine
DX: D69.6 Thrombocytopenia, unspecified (principal); D69.3 Immune thrombocytopenic purpura
CPT/HCPCS: 36415; 85025

== ENCOUNTER → 2025-05-14 08:28 | Outpatient (REF) | payer OTHER, SELFPAY ==
[2025-05-14 08:39] LABS: Hematocrit 34.4 % (37.0-47.0); Hemoglobin 11.4 g/dL (12.0-16.0); Mean Corp Hgb Conc. 33.1 g/dL (33.0-37.0); Mean Corpuscular Volume 89.1 fL (81.0-99.0); Platelet Count 89 10^3/uL (130-400); Red Cell Dist. Width 13.0 % (11.5-14.5)
== END ==
LOC: OIDL 08:28
PROVIDERS: ATTENDING PHYSICIAN Internal Medicine Hematology & Oncology
DX: D69.6 Thrombocytopenia, unspecified (principal); D69.3 Immune thrombocytopenic purpura
CPT/HCPCS: 36415; 85025

== ENCOUNTER → 2025-05-21 09:13 | Outpatient (REF) | payer OTHER, SELFPAY ==
[2025-05-21 09:28] LABS: Hematocrit 35.6 % (37.0-47.0); Hemoglobin 11.8 g/dL (12.0-16.0); Mean Corp Hgb Conc. 33.1 g/dL (33.0-37.0); Mean Corpuscular Volume 89.9 fL (81.0-99.0); Platelet Count 332 10^3/uL (130-400); Red Cell Dist. Width 13.0 % (11.5-14.5)
== END ==
LOC: OIDL 09:13
PROVIDERS: ATTENDING PHYSICIAN Internal Medicine Hematology & Oncology
DX: D69.6 Thrombocytopenia, unspecified (principal); D69.3 Immune thrombocytopenic purpura
CPT/HCPCS: 36415; 85025

== ENCOUNTER → 2025-05-28 09:00 | Outpatient (REF) | payer OTHER, SELFPAY ==
[2025-05-28 09:30] LABS: Hematocrit 37.4 % (37.0-47.0); Hemoglobin 12.3 g/dL (12.0-16.0); Mean Corp Hgb Conc. 32.9 g/dL (33.0-37.0); Mean Corpuscular Volume 88.2 fL (81.0-99.0); Nucleated Red Blood Cells % 0 %; Platelet Count 140 10^3/uL (130-400); Red Cell Dist. Width 12.9 % (11.5-14.5)
== END ==
LOC: REG 09:00
PROVIDERS: ATTENDING PHYSICIAN Nurse Practitioner Primary Care
DX: D69.6 Thrombocytopenia, unspecified (principal); D69.3 Immune thrombocytopenic purpura
CPT/HCPCS: 36415; 85025

== ENCOUNTER → 2025-06-13 08:07 | Outpatient (REF) | payer OTHER, SELFPAY ==
[2025-06-13 08:21] LABS: Hematocrit 35.7 % (37.0-47.0); Hemoglobin 12.0 g/dL (12.0-16.0); Mean Corp Hgb Conc. 33.6 g/dL (33.0-37.0); Mean Corpuscular Volume 88.4 fL (81.0-99.0); Platelet Count 45 10^3/uL (130-400); Red Cell Dist. Width 12.3 % (11.5-14.5)
== END ==
LOC: OIDL 08:07
PROVIDERS: ATTENDING PHYSICIAN Internal Medicine Hematology & Oncology; FAMILY PHYSICIAN Internal Medicine
DX: D69.6 Thrombocytopenia, unspecified (principal); D69.3 Immune thrombocytopenic purpura
CPT/HCPCS: 36415; 85025

== ENCOUNTER → 2025-06-20 08:16 | Outpatient (REF) | payer OTHER, SELFPAY ==
[2025-06-20 08:34] LABS: Hematocrit 35.9 % (37.0-47.0); Hemoglobin 12.0 g/dL (12.0-16.0); Mean Corp Hgb Conc. 33.4 g/dL (33.0-37.0); Mean Corpuscular Volume 88.4 fL (81.0-99.0); Platelet Count 147 10^3/uL (130-400); Red Cell Dist. Width 12.4 % (11.5-14.5)
== END ==
LOC: OIDL 08:16
PROVIDERS: ATTENDING PHYSICIAN Internal Medicine Hematology & Oncology
DX: D69.6 Thrombocytopenia, unspecified (principal); D69.3 Immune thrombocytopenic purpura
CPT/HCPCS: 36415; 85025

== ENCOUNTER → 2025-06-27 09:02 | Outpatient (REF) | payer OTHER, SELFPAY ==
[2025-06-27 09:14] LABS: Hematocrit 35.0 % (37.0-47.0); Hemoglobin 11.6 g/dL (12.0-16.0); Mean Corp Hgb Conc. 33.1 g/dL (33.0-37.0); Mean Corpuscular Volume 89.3 fL (81.0-99.0); Platelet Count 216 10^3/uL (130-400); Red Cell Dist. Width 12.6 % (11.5-14.5)
== END ==
LOC: OIDL 09:02
PROVIDERS: ATTENDING PHYSICIAN Internal Medicine Hematology & Oncology
DX: D69.6 Thrombocytopenia, unspecified (principal); D69.3 Immune thrombocytopenic purpura
CPT/HCPCS: 36415; 85025

== ENCOUNTER → 2025-07-04 09:20 | Outpatient (REF) | payer OTHER, SELFPAY ==
[2025-07-04 09:42] LABS: Hematocrit 35.4 % (37.0-47.0); Hemoglobin 11.8 g/dL (12.0-16.0); Mean Corp Hgb Conc. 33.3 g/dL (33.0-37.0); Mean Corpuscular Volume 88.3 fL (81.0-99.0); Platelet Count 133 10^3/uL (130-400); Red Cell Dist. Width 12.1 % (11.5-14.5)
== END ==
LOC: OIDL 09:20
PROVIDERS: ATTENDING PHYSICIAN Internal Medicine Hematology & Oncology
DX: D69.6 Thrombocytopenia, unspecified (principal); D69.3 Immune thrombocytopenic purpura
CPT/HCPCS: 36415; 85025

== ENCOUNTER → 2025-07-11 09:08 | Outpatient (REF) | payer OTHER, SELFPAY ==
[2025-07-11 09:25] LABS: Hematocrit 36.5 % (37.0-47.0); Hemoglobin 12.3 g/dL (12.0-16.0); Mean Corp Hgb Conc. 33.7 g/dL (33.0-37.0); Mean Corpuscular Volume 86.9 fL (81.0-99.0); Platelet Count 201 10^3/uL (130-400); Red Cell Dist. Width 12.3 % (11.5-14.5)
== END ==
LOC: OIDL 09:08
PROVIDERS: ATTENDING PHYSICIAN Nurse Practitioner Primary Care
DX: D69.6 Thrombocytopenia, unspecified (principal); D69.3 Immune thrombocytopenic purpura
CPT/HCPCS: 36415; 85025

== ENCOUNTER → 2025-07-18 09:01 | Outpatient (REF) | payer MEDICARE, OTHER, SELFPAY ==
[2025-07-18 09:12] LABS: Hematocrit 37.6 % (37.0-47.0); Hemoglobin 12.4 g/dL (12.0-16.0); Mean Corp Hgb Conc. 33.0 g/dL (33.0-37.0); Mean Corpuscular Volume 89.3 fL (81.0-99.0); Platelet Count 123 10^3/uL (130-400); Red Cell Dist. Width 12.2 % (11.5-14.5)
[2025-07-18 10:06] LABS: Iron 105 ug/dl (37-170)
[2025-07-18 10:15] LABS: Total Iron Binding Capacity 258 ug/dl (265-497)
[2025-07-18 10:42] LABS: Ferritin 88.8 ng/ml (11.1-264.0)
[2025-07-18 11:13] LABS: Folate 14.4 ng/ml (2.76-20)
[2025-07-18 12:11] LABS: Vitamin B12 > 1000 pg/ml (239-931)
== END ==
LOC: OIDL 09:01
PROVIDERS: ATTENDING PHYSICIAN Nurse Practitioner Primary Care; REFERRING PHYSICIAN Internal Medicine Hematology & Oncology
DX: D69.6 Thrombocytopenia, unspecified (principal); D69.3 Immune thrombocytopenic purpura
CPT/HCPCS: 36415; 82607; 82728; 82746; 83540; 83550; 85025

== ENCOUNTER → 2025-08-01 09:02 | Outpatient (REF) | payer MEDICARE, OTHER, SELFPAY ==
[2025-08-01 09:18] LABS: Hematocrit 35.9 % (37.0-47.0); Hemoglobin 12.1 g/dL (12.0-16.0); Mean Corp Hgb Conc. 33.7 g/dL (33.0-37.0); Mean Corpuscular Volume 87.8 fL (81.0-99.0); Platelet Count 24 10^3/uL (130-400); Red Cell Dist. Width 12.2 % (11.5-14.5)
== END ==
LOC: OIDL 09:02
PROVIDERS: ATTENDING PHYSICIAN Nurse Practitioner Primary Care; REFERRING PHYSICIAN Internal Medicine Hematology & Oncology
DX: D69.6 Thrombocytopenia, unspecified (principal); D69.3 Immune thrombocytopenic purpura
CPT/HCPCS: 36415; 85025

== ENCOUNTER → 2025-08-08 09:08 | Outpatient (REF) | payer MEDICARE, OTHER, SELFPAY ==
[2025-08-08 10:00] LABS: Hematocrit 36.3 % (37.0-47.0); Hemoglobin 12.1 g/dL (12.0-16.0); Mean Corp Hgb Conc. 33.3 g/dL (33.0-37.0); Mean Corpuscular Volume 88.1 fL (81.0-99.0); Platelet Count 176 10^3/uL (130-400); Red Cell Dist. Width 12.7 % (11.5-14.5)
== END ==
LOC: OIDL 09:08
PROVIDERS: ATTENDING PHYSICIAN Nurse Practitioner Primary Care
DX: D69.6 Thrombocytopenia, unspecified (principal); D69.3 Immune thrombocytopenic purpura
CPT/HCPCS: 36415; 85025

== ENCOUNTER → 2025-08-15 09:02 | Outpatient (REF) | payer MEDICARE, OTHER, SELFPAY ==
[2025-08-15 09:14] LABS: Hematocrit 35.9 % (37.0-47.0); Hemoglobin 12.0 g/dL (12.0-16.0); Mean Corp Hgb Conc. 33.4 g/dL (33.0-37.0); Mean Corpuscular Volume 88.0 fL (81.0-99.0); Platelet Count 327 10^3/uL (130-400); Red Cell Dist. Width 12.3 % (11.5-14.5)
== END ==
LOC: OIDL 09:02
PROVIDERS: ATTENDING PHYSICIAN Nurse Practitioner Primary Care
DX: D69.6 Thrombocytopenia, unspecified (principal); D69.3 Immune thrombocytopenic purpura
CPT/HCPCS: 36415; 85025

== ENCOUNTER → 2025-08-22 12:49 | Outpatient (REF) | payer MEDICARE, OTHER, SELFPAY ==
[2025-08-22 12:59] LABS: Hematocrit 35.0 % (37.0-47.0); Hemoglobin 11.9 g/dL (12.0-16.0); Mean Corp Hgb Conc. 34.0 g/dL (33.0-37.0); Mean Corpuscular Volume 88.6 fL (81.0-99.0); Platelet Count 143 10^3/uL (130-400); Red Cell Dist. Width 12.7 % (11.5-14.5)
== END ==
LOC: OIDL 12:49
PROVIDERS: Internal Medicine Hematology & Oncology; ATTENDING PHYSICIAN Nurse Practitioner Primary Care
DX: D69.6 Thrombocytopenia, unspecified (principal); D69.3 Immune thrombocytopenic purpura
CPT/HCPCS: 36415; 85025

== ENCOUNTER → 2025-09-05 09:31 | Outpatient (REF) | payer MEDICARE, OTHER, SELFPAY ==
[2025-09-05 10:07] LABS: Hematocrit 35.4 % (37.0-47.0); Hemoglobin 11.7 g/dL (12.0-16.0); Mean Corp Hgb Conc. 33.1 g/dL (33.0-37.0); Mean Corpuscular Volume 89.4 fL (81.0-99.0); Platelet Count 44 10^3/uL (130-400); Red Cell Dist. Width 12.5 % (11.5-14.5)
== END ==
LOC: OIDL 09:31
PROVIDERS: ATTENDING PHYSICIAN Nurse Practitioner Primary Care
DX: D69.6 Thrombocytopenia, unspecified (principal); D69.3 Immune thrombocytopenic purpura
CPT/HCPCS: 36415; 85025

== ENCOUNTER → 2025-09-12 10:28 | Outpatient (REF) | payer MEDICARE, OTHER, SELFPAY ==
[2025-09-12 10:43] LABS: Hematocrit 35.8 % (37.0-47.0); Hemoglobin 12.1 g/dL (12.0-16.0); Mean Corp Hgb Conc. 33.8 g/dL (33.0-37.0); Mean Corpuscular Volume 87.1 fL (81.0-99.0); Platelet Count 174 10^3/uL (130-400); Red Cell Dist. Width 12.7 % (11.5-14.5)
== END ==
LOC: OIDL 10:28
PROVIDERS: ATTENDING PHYSICIAN Internal Medicine Hematology & Oncology
DX: D69.6 Thrombocytopenia, unspecified (principal); D69.3 Immune thrombocytopenic purpura
CPT/HCPCS: 36415; 85025